=== PATIENT | male | born 1975 | race Caucasian/White ===

== ENCOUNTER 2018-04-18 13:15 | Emergency (ER) | payer BC ==
[2018-04-18] MEDS ORDERED: KETOROLAC 30 MG/ML INJ ONE (15:14)
--- NOTE | 2018-04-18 16:11 | ER ---
Nurse's Notes [facility] Name: Juan David Cahvez Age: 42 yrs Sex: Male : 1975 Arrival Date: 04/18/2018 Time: 13:19 Bed 12 Private MD: Jorge Salazar Diagnosis: Pain in right hip Presentation: 04/18 13:28 Presenting complaint: Patient states: I have been having right hip pain for the last la1 2-3 days but it is getting much worse and I having a lot of pain when I walk. Transition of care: patient was not received from another setting of care. Onset of symptoms was April 18, 2018. Risk Assessment: Do you want to hurt yourself or someone else? Patient reports no desire to harm self or others. Initial Sepsis Screen: Does the patient meet any 2 criteria? No. Patient's initial sepsis screen is negative. Does the patient have a suspected source of infection? No. Patient's initial sepsis screen is negative. Care prior to arrival: None. 13:28 Method Of Arrival: Ambulatory la1 13:28 Acuity: NATHANAEL 4 la1 Triage Assessment: 16:25 General: Appears in no apparent distress. Behavior is calm, cooperative. iw Historical: - Allergies: 13:29 No Known Allergies; la1 - PMHx: 13:29 None; la1 - Immunization history:: Adult Immunizations up to date. - Social history:: Smoking status: Patient uses tobacco products, smokes one-half pack cigarettes per day. - Ebola Screening: : No symptoms or risks identified at this time. Screenin:00 Abuse screen: Denies threats or abuse. Denies injuries from another. Nutritional iw screening: No deficits noted. Tuberculosis screening: No symptoms or risk factors identified. Fall Risk None identified. Assessment: 14:15 General: Appears in no apparent distress. comfortable. Pain: Complains of pain in right iw hip. Neuro: Level of Consciousness is awake, alert, obeys commands, Oriented to person, place, time, situation, Moves all extremities. Full function. Cardiovascular: Patient's skin is warm and dry. Respiratory: Respiratory effort is even, unlabored, Respiratory pattern is regular. Derm: Skin is intact, is healthy with good turgor. Musculoskeletal: Range of motion: intact in all extremities. Vital Signs: 13:29 BP 169 / 109; Pulse 74; Resp 16; Temp 97.1; Pulse Ox 98% on R/A; Weight 65.77 kg; la1 Height 6 ft. 0 in. (182.88 cm); 13:29 Body Mass Index 19.67 (65.77 kg, 182.88 cm) la1 ED Course: 13:19 Patient arrived in ED. mr 13:20 Jorge Salazar MD is Private Physician. mr 13:29 Triage completed. la1 13:29 Arm band placed on right wrist. la1 14:00 Patient has correct armband on for positive identification. iw 14:42 Red Putnam PA is PHCP. cp 14:42 Bryon Najera MD is Attending Physician. cp 14:57 Giovanna Miranda, RN is Primary Nurse. iw 15:31 X-ray completed. Patient tolerated procedure well. sg4 15:32 XRAY Hip RIGHT 2 view In Process Unspecified. EDMS 16:11 Jorge Salazar MD is Referral Physician. cp 16:27 No provider procedures requiring assistance completed. Patient did not have IV access iw during this emergency room visit. Administered Medications: 15:15 Not Given (Patient Refused): TORadol 60 mg IM once iw Outcome: 16:11 Discharge ordered by MD. cp 16:27 Discharged to home ambulatory, with family. iw 16:27 Condition: good 16:27 Discharge instructions given to patient, family, Instructed on discharge instructions, follow up and referral plans. medication usage, Demonstrated understanding of instructions, follow-up care, medications, Prescriptions given X 2. 16:28 Patient left the ED. iw Signatures: Dispatcher [employer] VICENTAAL Rosetta Morales mr Giovanna Miranda, RN RN iw Hermilo Miller RN RN la1 Red Putnam PA PA Francisca Schofield sg4
--- NOTE | 2018-04-18 16:11 | EDPHYS ---
Physician Documentation [facility] Name: Juan David Chavez Age: 42 yrs Sex: Male : 1975 Arrival Date: 04/18/2018 Time: 13:19 Bed 12 Private MD: Jorge Salazar ED Physician Bryon Najera HPI: 04/18 15:00 This 42 yrs old Male presents to ER via Ambulatory with complaints of Hip cp Pain. 15:00 The patient or guardian reports pain. sustained from unknown reason, The patient is cp able to ambulate with assistance. The patient is able to bear their full body weight. There is no radiation of the patient's discomfort. The complaints affect the right hip. 15:00 Onset: The symptoms/episode began/occurred 3 day(s) ago. cp 15:00 Modifying factors: the symptoms are aggravated by external rotation, internal rotation, cp weight bearing. Associated signs and symptoms: Pertinent negatives: abdominal pain, dysuria, fever, low back pain. Severity of symptoms: in the emergency department the symptoms are unchanged, despite home interventions. Historical: - Allergies: 13:29 No Known Allergies; la1 - PMHx: 13:29 None; la1 - Immunization history:: Adult Immunizations up to date. - Social history:: Smoking status: Patient uses tobacco products, smokes one-half pack cigarettes per day. - Ebola Screening: : No symptoms or risks identified at this time. ROS: 15:05 MS/extremity: Positive for pain, of the right hip. cp 15:05 Eyes: Negative for injury, pain, redness, and discharge. cp 15:05 Constitutional: Negative for body aches, chills, fever, poor PO intake. 15:05 Cardiovascular: Negative for chest pain, edema, palpitations. 15:05 Respiratory: Negative for cough, shortness of breath, wheezing. 15:05 Abdomen/GI: Negative for abdominal pain, nausea, vomiting, and diarrhea. 15:05 Back: Negative for injury or acute deformity, decreased range of motion, pain at rest, pain with movement, radiated pain. 15:05 : Negative for urinary symptoms, testicular pain 15:05 Skin: Negative for rash. 15:05 Neuro: Negative for headache, numbness, tingling, weakness. 15:05 All other systems are negative. Exam: 15:10 Constitutional: The patient appears in no acute distress, alert, awake, non-toxic, well cp developed, well nourished. 15:10 Head/Face: Normocephalic, atraumatic. cp 15:10 Eyes: Periorbital structures: appear normal, Conjunctiva: normal, no exudate, no injection, Lids and lashes: appear normal, bilaterally. 15:10 ENT: External ear(s): are unremarkable, Nose: is normal, Mouth: Lips: moist, Oral mucosa: moist, Posterior pharynx: Airway: no evidence of obstruction, patent. 15:10 Chest/axilla: Inspection: normal. 15:10 Cardiovascular: Rate: normal, Edema: is not appreciated. 15:10 Respiratory: the patient does not display signs of respiratory distress, Respirations: normal. 15:10 Abdomen/GI: Inspection: abdomen appears normal, Palpation: abdomen is soft and non-tender, in all quadrants, voluntary guarding, is not appreciated, involuntary guarding, is not appreciated. 15:10 Back: pain, is absent, ROM is normal. 15:10 Musculoskeletal/extremity: ROM: limited passive range of motion due to pain, in the right hip, Perfusion: the extremity is normally perfused throughout, Sensation intact. Joints: All joints are normal except the right hip displays painful range of motion, tenderness. 15:10 Skin: cellulitis, is not appreciated, no rash present. 15:10 Neuro: Motor: moves all fours, strength is normal, Sensation: is normal. Vital Signs: 13:29 BP 169 / 109; Pulse 74; Resp 16; Temp 97.1; Pulse Ox 98% on R/A; Weight 65.77 kg; la1 Height 6 ft. 0 in. (182.88 cm); 13:29 Body Mass Index 19.67 (65.77 kg, 182.88 cm) la1 MDM: 14:42 Patient medically screened. cp 14:55 Differential diagnosis: hip fracture, intertrochanteric fracture, femoral neck cp fracture, bursitis, strain, AVN. 16:10 Data reviewed: vital signs, nurses notes, radiologic studies, plain films. cp 16:10 Test interpretation: by ED physician or midlevel provider: plain radiologic studies. cp Counseling: I had a detailed discussion with the patient and/or guardian regarding: the historical points, exam findings, and any diagnostic results supporting the discharge/admit diagnosis, radiology results, the need for outpatient follow up, a family practitioner, to return to the emergency department if symptoms worsen or persist or if there are any questions or concerns that arise at home. 04/18 14:54 Order name: XRAY Hip RIGHT 2 view; Complete Time: 22:46 cp 04/18 22:46 Interpretation: Report reviewed. cp Administered Medications: 15:15 Not Given (Patient Refused): TORadol 60 mg IM once iw Disposition: 04/18/18 16:11 Discharged to Home. Impression: Pain in right hip. - Condition is Stable. - Discharge Instructions: Hip Pain. - Prescriptions for Anaprox DS 550 mg Oral Tablet - take 1 tablet by ORAL route every 12 hours As needed; 20 tablet. Cyclobenzaprine 10 mg Oral Tablet - take 1 tablet by ORAL route every 8 hours As needed; 20 tablet. - Medication Reconciliation Form, Thank You Letter, Antibiotic Education, Prescription Opioid Use form. - Follow up: Jorge Salazar MD; When: 2 - 3 days; Reason: Recheck today's complaints. - Problem is new. - Symptoms are unchanged. Addendum: 04/29/2018 15:36 Co-signature as Attending Physician, Bryon Najera MD Available for consultation at p s1 all times. . Signatures: Dispatcher [employer] Giovanna Truong RN RN iw Attema, Lee, RN RN la1 Red Putnam PA PA Bryon Friedman MD MD ps1 Corrections: (The following items were deleted from the chart) 04/18 16:28 16:11 04/18/2018 16:11 Discharged to Home. Impression: Pain in right hip. Condition is iw Stable. Forms are Medication Reconciliation Form, Thank You Letter, Antibiotic Education, Prescription Opioid Use. Follow up: Jorge Salazar; When: 2 - 3 days; Reason: Recheck today's complaints. Problem is new. Symptoms are unchanged. cp
--- NOTE | 2018-04-18 16:58 | RAD REPORT ---
EXAM DESCRIPTION: RAD - Hip Right 2 View - 04/18/2018 3:32 pm CLINICAL HISTORY: PAIN COMPARISON: No comparisons FINDINGS: No fracture, dislocation or AVN of the right hip is observed.
[2018-04-18 17:22] VITALS: BP 169/109; TEMP 97.1; O2SAT 98
== END 2018-04-18 16:28 | disposition home or self-care (01) ==
LOC: ER 13:15
DX: M25.551 Pain in right hip (principal); F17.210 Nicotine dependence, cigarettes, uncomplicated
CPT/HCPCS: 99283